=== PATIENT | male | born 1985 | race Caucasian/White ===

== ENCOUNTER 2021-03-26 10:01 | Outpatient (REF) | payer OTHER, SELFPAY ==
--- NOTE | ~2021-03-26 | XR_ITS ---
EXAMINATION: XR HAND, RIGHT CLINICAL INFORMATION: Right hand pain. COMPARISON: Right hand radiographs dated 10/02/2006. TECHNIQUE: PA, lateral, and oblique views of the right hand. FINDINGS: Healed 5th metacarpal fracture. No acute fracture. No joint space narrowing or marginal osteophytes. No osseous erosion. No abnormal soft tissue calcification. XR/XR hand RT min 3V IMPRESSION: Healed 5th metacarpal fracture. No acute osseous abnormality.
== END 2021-03-26 10:02 | disposition home or self-care (01) ==
LOC: HO.HOSX 10:01
PROVIDERS: Visit Provider Orthopaedic Surgery
DX: S60.221A Contusion of right hand, initial encounter (principal); M25.641 Stiffness of right hand, not elsewhere classified; W01.0XXA Fall on same level from slipping, tripping and stumbling without subsequent striking against object, initial encounter; Y93.9 Activity, unspecified; Y92.9 Unspecified place or not applicable; Y99.0 Civilian activity done for income or pay
CPT/HCPCS: 73130; 99202

== ENCOUNTER 2021-04-02 08:32 | Outpatient (REF) | payer OTHER, SELFPAY ==
--- NOTE | ~2021-04-02 | XR_ITS ---
EXAMINATION: XR HAND, RIGHT CLINICAL INFORMATION: Pain. COMPARISON: Radiographs dated 03/26/2021 and 10/02/2006. TECHNIQUE: PA, lateral, and oblique views of the right fifth finger. FINDINGS: The bones and soft tissues are normal. No acute fracture or dislocation is seen. There is an old, healed right fifth metacarpal boxer's fracture. Alignment is anatomic. Joint spaces are maintained. No erosions or soft tissue calcifications. XR/XR hand RT min 3V IMPRESSION: Unremarkable radiographs of the right fifth finger, without acute fracture, dislocation or unusual degenerative change. There is an old, healed right fifth metacarpal boxer's fracture.
== END 2021-04-02 08:33 | disposition home or self-care (01) ==
LOC: HO.HOSX 08:32
PROVIDERS: Visit Provider Orthopaedic Surgery
DX: M25.641 Stiffness of right hand, not elsewhere classified (principal); S60.221D Contusion of right hand, subsequent encounter; S54.01XD Injury of ulnar nerve at forearm level, right arm, subsequent encounter
CPT/HCPCS: 73130; 99212

== ENCOUNTER → 2022-03-06 10:21 | Outpatient (BNVA) | payer OTHER, SELFPAY | PROVIDERS: Visit Provider Internal Medicine | DX: Z13.89 Encounter for screening for other disorder (principal) ==

== ENCOUNTER 2022-03-06 10:48 | Emergency (ER) | payer OTHER, SELFPAY ==
[2022-03-06] VITALS (7 sets, daily range): BP systolic 110–128; BP diastolic 53–57; PULSE 67–69; RESP 19–20; TEMP 36.7–37.1; O2SAT 99–100; BMI 28.8
--- NOTE | ~2022-03-06 | XR_ITS ---
EXAMINATION: XR calcaneus RT min 2V, XR calcaneus LT min 2V, XR foot LT min 3V, XR tibia fibula RT 2V, XR foot RT min 3V, XR tibia fibula LT 2V CLINICAL INFORMATION: Injury. COMPARISON: None. TECHNIQUE: Axial view of the left calcaneus. AP and lateral views of the tibia and fibula. AP, lateral, and oblique views of the left foot. Axial view of the right calcaneus. AP and lateral views of the right tibia and fibula. AP, lateral, and oblique views of the right foot. FINDINGS:. LEFT TIBIA AND FIBULA, CALCANEUS, AND FOOT: There is a mildly comminuted fracture of the body of the calcaneus that appears to extend to the subtalar joint. Tiny posterior enthesophyte at the distal Achilles tendon attachment. Tiny plantar calcaneal enthesophyte. The left tibia and fibula are intact. Normal tarsal-metatarsal alignment. The midfoot is intact. No fracture or dislocation of the tarsometatarsal metatarsals RIGHT TIBIA AND FIBULA, CALCANEUS, AND FOOT: Right tibia and fibula are intact. Right calcaneus is intact. No fracture or dislocation of the right foot. Normal mineralization and alignment. XR/XR tibia fibula RT 2V IMPRESSION: Comminuted fracture of the body of the left calcaneus with likely extension to the subtalar joint. No fracture in the left tibia and fibula. No fracture in the remainder of the left foot. No fracture of the right tibia, fibula, calcaneus, or foot.
--- NOTE | ~2022-03-06 | XR_ITS ---
EXAMINATION: XR calcaneus RT min 2V, XR calcaneus LT min 2V, XR foot LT min 3V, XR tibia fibula RT 2V, XR foot RT min 3V, XR tibia fibula LT 2V CLINICAL INFORMATION: Injury. COMPARISON: None. TECHNIQUE: Axial view of the left calcaneus. AP and lateral views of the tibia and fibula. AP, lateral, and oblique views of the left foot. Axial view of the right calcaneus. AP and lateral views of the right tibia and fibula. AP, lateral, and oblique views of the right foot. FINDINGS:. LEFT TIBIA AND FIBULA, CALCANEUS, AND FOOT: There is a mildly comminuted fracture of the body of the calcaneus that appears to extend to the subtalar joint. Tiny posterior enthesophyte at the distal Achilles tendon attachment. Tiny plantar calcaneal enthesophyte. The left tibia and fibula are intact. Normal tarsal-metatarsal alignment. The midfoot is intact. No fracture or dislocation of the tarsometatarsal metatarsals RIGHT TIBIA AND FIBULA, CALCANEUS, AND FOOT: Right tibia and fibula are intact. Right calcaneus is intact. No fracture or dislocation of the right foot. Normal mineralization and alignment. XR/XR calcaneus RT min 2V IMPRESSION: Comminuted fracture of the body of the left calcaneus with likely extension to the subtalar joint. No fracture in the left tibia and fibula. No fracture in the remainder of the left foot. No fracture of the right tibia, fibula, calcaneus, or foot.
--- NOTE | ~2022-03-06 | XR_ITS ---
EXAMINATION: XR calcaneus RT min 2V, XR calcaneus LT min 2V, XR foot LT min 3V, XR tibia fibula RT 2V, XR foot RT min 3V, XR tibia fibula LT 2V CLINICAL INFORMATION: Injury. COMPARISON: None. TECHNIQUE: Axial view of the left calcaneus. AP and lateral views of the tibia and fibula. AP, lateral, and oblique views of the left foot. Axial view of the right calcaneus. AP and lateral views of the right tibia and fibula. AP, lateral, and oblique views of the right foot. FINDINGS:. LEFT TIBIA AND FIBULA, CALCANEUS, AND FOOT: There is a mildly comminuted fracture of the body of the calcaneus that appears to extend to the subtalar joint. Tiny posterior enthesophyte at the distal Achilles tendon attachment. Tiny plantar calcaneal enthesophyte. The left tibia and fibula are intact. Normal tarsal-metatarsal alignment. The midfoot is intact. No fracture or dislocation of the tarsometatarsal metatarsals RIGHT TIBIA AND FIBULA, CALCANEUS, AND FOOT: Right tibia and fibula are intact. Right calcaneus is intact. No fracture or dislocation of the right foot. Normal mineralization and alignment. XR/XR foot LT min 3V IMPRESSION: Comminuted fracture of the body of the left calcaneus with likely extension to the subtalar joint. No fracture in the left tibia and fibula. No fracture in the remainder of the left foot. No fracture of the right tibia, fibula, calcaneus, or foot.
--- NOTE | ~2022-03-06 | CT_ITS ---
EXAMINATION: CT EXAM OF LEFT FOOT. CLINICAL INFORMATION: Calcaneal fracture. COMPARISON: Left calcaneus 03/06/2022 TECHNIQUE: Axial images obtained through the left foot. Coronal and sagittal reformatted images are performed at CT scanner FINDINGS: Comminuted intra-articular fracture of the left calcaneus. There is a fragmented fracture through the posterior facet of the calcaneus. Moderate displacement of fracture fragments. Fracture extends to the inferior surface of the calcaneus. The fracture line extends anterior to the calcaneal cuboid articulation. There is a fracture through the base of the sustentaculum gian with normal articulation between the sustentaculum gian and the talus . CT/CT foot LT wo con IMPRESSION: Comminuted displaced intra-articular fracture of calcaneus.
--- NOTE | ~2022-03-06 | XR_ITS ---
EXAMINATION: XR calcaneus RT min 2V, XR calcaneus LT min 2V, XR foot LT min 3V, XR tibia fibula RT 2V, XR foot RT min 3V, XR tibia fibula LT 2V CLINICAL INFORMATION: Injury. COMPARISON: None. TECHNIQUE: Axial view of the left calcaneus. AP and lateral views of the tibia and fibula. AP, lateral, and oblique views of the left foot. Axial view of the right calcaneus. AP and lateral views of the right tibia and fibula. AP, lateral, and oblique views of the right foot. FINDINGS:. LEFT TIBIA AND FIBULA, CALCANEUS, AND FOOT: There is a mildly comminuted fracture of the body of the calcaneus that appears to extend to the subtalar joint. Tiny posterior enthesophyte at the distal Achilles tendon attachment. Tiny plantar calcaneal enthesophyte. The left tibia and fibula are intact. Normal tarsal-metatarsal alignment. The midfoot is intact. No fracture or dislocation of the tarsometatarsal metatarsals RIGHT TIBIA AND FIBULA, CALCANEUS, AND FOOT: Right tibia and fibula are intact. Right calcaneus is intact. No fracture or dislocation of the right foot. Normal mineralization and alignment. XR/XR calcaneus LT min 2V IMPRESSION: Comminuted fracture of the body of the left calcaneus with likely extension to the subtalar joint. No fracture in the left tibia and fibula. No fracture in the remainder of the left foot. No fracture of the right tibia, fibula, calcaneus, or foot.
--- NOTE | ~2022-03-06 | XR_ITS ---
EXAMINATION: XR calcaneus RT min 2V, XR calcaneus LT min 2V, XR foot LT min 3V, XR tibia fibula RT 2V, XR foot RT min 3V, XR tibia fibula LT 2V CLINICAL INFORMATION: Injury. COMPARISON: None. TECHNIQUE: Axial view of the left calcaneus. AP and lateral views of the tibia and fibula. AP, lateral, and oblique views of the left foot. Axial view of the right calcaneus. AP and lateral views of the right tibia and fibula. AP, lateral, and oblique views of the right foot. FINDINGS:. LEFT TIBIA AND FIBULA, CALCANEUS, AND FOOT: There is a mildly comminuted fracture of the body of the calcaneus that appears to extend to the subtalar joint. Tiny posterior enthesophyte at the distal Achilles tendon attachment. Tiny plantar calcaneal enthesophyte. The left tibia and fibula are intact. Normal tarsal-metatarsal alignment. The midfoot is intact. No fracture or dislocation of the tarsometatarsal metatarsals RIGHT TIBIA AND FIBULA, CALCANEUS, AND FOOT: Right tibia and fibula are intact. Right calcaneus is intact. No fracture or dislocation of the right foot. Normal mineralization and alignment. XR/XR foot RT min 3V IMPRESSION: Comminuted fracture of the body of the left calcaneus with likely extension to the subtalar joint. No fracture in the left tibia and fibula. No fracture in the remainder of the left foot. No fracture of the right tibia, fibula, calcaneus, or foot.
--- NOTE | ~2022-03-06 | XR_ITS ---
EXAMINATION: XR calcaneus RT min 2V, XR calcaneus LT min 2V, XR foot LT min 3V, XR tibia fibula RT 2V, XR foot RT min 3V, XR tibia fibula LT 2V CLINICAL INFORMATION: Injury. COMPARISON: None. TECHNIQUE: Axial view of the left calcaneus. AP and lateral views of the tibia and fibula. AP, lateral, and oblique views of the left foot. Axial view of the right calcaneus. AP and lateral views of the right tibia and fibula. AP, lateral, and oblique views of the right foot. FINDINGS:. LEFT TIBIA AND FIBULA, CALCANEUS, AND FOOT: There is a mildly comminuted fracture of the body of the calcaneus that appears to extend to the subtalar joint. Tiny posterior enthesophyte at the distal Achilles tendon attachment. Tiny plantar calcaneal enthesophyte. The left tibia and fibula are intact. Normal tarsal-metatarsal alignment. The midfoot is intact. No fracture or dislocation of the tarsometatarsal metatarsals RIGHT TIBIA AND FIBULA, CALCANEUS, AND FOOT: Right tibia and fibula are intact. Right calcaneus is intact. No fracture or dislocation of the right foot. Normal mineralization and alignment. XR/XR tibia fibula LT 2V IMPRESSION: Comminuted fracture of the body of the left calcaneus with likely extension to the subtalar joint. No fracture in the left tibia and fibula. No fracture in the remainder of the left foot. No fracture of the right tibia, fibula, calcaneus, or foot.
[2022-03-06] MEDS: Morphine Sulfate 10 MG/ML CARTRIDGE 8 MG IVPUSH (11:54)
[2022-03-06 12:06] LABS: MANUAL DIFF FLAG NO
[2022-03-06 12:09] LABS: Basophils Absolute Auto 0.1 X10*3/uL (0.0-0.2); Basophils Percent Auto 0.5 % (0-2); Eosinophils Absolute Auto 0.3 X10*3/uL (0.0-0.4); Hematocrit 41.5 % (42.0-52.0); Hemoglobin 13.9 g/dl (14.0-18.0); Imm Gran Abs Auto 0.03 X10*3/uL (0.00-0.03); Imm Gran Pct Auto 0.3 % (0.0-0.4); Lymphocytes Absolute Auto 1.4 X10*3/uL (1.2-4.9); Lymphocytes Percent Auto 13.7 % (20-40); Mean Corpuscular HGB Conc 33.5 g/dl (31.0-36.0); Mean Corpuscular Hemoglobin 29.3 pg (27.0-33.0); Mean Corpuscular Volume 87.4 fL (80.0-98.0); Mean Platelet Volume 9.9 fL (9.4-12.4); Monocytes Absolute Auto 0.6 X10*3/uL (0.1-1.2); Monocytes Percent Auto 5.7 % (2-11); Neutrophils Percent Auto 76.8 % (45-73); Platelet Count 260 X10*3/uL (160-400); Red Blood Count 4.75 X10*6/uL (4.60-5.80); Red Cell Distribution Width 13.2 % (11.0-16.0); White Blood Count 10.4 X10*3/uL (4.8-10.8)
[2022-03-06 12:20] LABS: Anion Gap 11 (12-20); Blood Urea Nitrogen 13 mg/dL (9-16); Calcium 9.2 mg/dL (8.4-10.2); Carbon Dioxide 24 mmol/L (22-29); Chloride 106 mmol/L (96-108); Creatinine Clr Calc Pharmacy 162.6; Estimated Glomerular Filt Rate > 60; Glucose Random 126 mg/dL (60-115); Potassium 4.9 mmol/L (3.3-5.1); Sodium 136 mmol/L (135-145)
[2022-03-06] MEDS: HYDROmorphone HCl 1 MG/ML SYRINGE IVPUSH ×4 (12:22→17:30)
--- NOTE | 2022-03-06 12:22 | ED.FALL ---
HPI - Fall General Chief Complaint: Fall Stated Complaint: fell 10-12 feet, feet in pain Time Seen by Provider: 03/06/22 11:38 History of Present Illness HPI Narrative: Patient complains of severe pain in both feet ankles and left lower leg after a fall of 12 ft, he was at work tripped and fell off a [address] and landed on both feet, he denies pain anywhere else, did not hit his head, has no neck pain or back pain Related Data Home Medications Medication Instructions Recorded Confirmed buprenorphine 2 mg-naloxone 0.5 mg 1 film buccal DAILY 03/26/21 sublingual film (Suboxone) Previous Rx's Medication Instructions Recorded acetaminophen 500 mg tablet 1,000 mg PO QID PRN pain #30 tabs 03/06/22 ibuprofen 600 mg tablet 600 mg PO Q6H PRN pain #20 tabs 03/06/22 oxycodone 5 mg tablet 5 mg PO Q6H PRN pain #20 tabs 03/06/22 Allergies Allergy/AdvReac Type Severity Reaction Status Date / Time No Known Allergies Allergy Verified 03/26/21 10:53 Review of Systems Review of Systems: Positive for bilateral foot ankle and leg pain worse on the left after a fall from 12 ft at work Negatives are no head injury no headache no dizziness no confusion no loss of consciousness no retrograde amnesia no vision changes no numbness no tingling no neck pain no loss of sensation no muscle weakness no chest pain no rib pain no shortness of breath no abdominal pain no nausea or vomiting no back pain no changes to bowel or bladder no numbness no weakness no tingling, no upper extremities pains or complaints Yes all other systems are reviewed and are negative [facility] Past Medical History [facility] Narrative: Patient has remote history of opioid abuse and is a regular working person on Suboxone with no recent narcotic use Source: nursing notes reviewed Social History Social History (Updated 03/26/21 @ 10:54 by NOEMI Gillette) Advance Directives: No Advance Directives Information Provided: No Current occupational status: employed 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 Physical 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 Vital Signs: Vital Signs: Last Vital Signs Temp 98.7 F 03/06/22 12:19 Pulse 67 03/06/22 12:19 Resp 20 03/06/22 14:54 BP 110/53 L 03/06/22 12:19 Pulse Ox 99 03/06/22 12:19 O2 Del Method 03/06/22 12:19 BMI result Body Mass Index 28.8 General appearance is very uncomfortable due to foot pain worse on left side and right Head is normocephalic atraumatic Eyes pupils equal round reactive to light extraocular motions are intact The neck is supple with full range of motion without tenderness The chest is clear to auscultation bilateral with full symmetric equal breath sounds, no chest wall tenderness no rib tenderness The back there is no tenderness in the back there is full range of motion no bony tenderness Extremities the left foot is swollen ecchymotic with worse tenderness around the ankle area of the foot but it is diffusely tender, the skin is intact, sensation is intact distal he can move his toes, neurovascular is intact Left ankle is tender and swollen The knee has full range of motion and there is some tenderness in the distal tib-fib area The right medial ankle is tender, there is also tenderness of the foot but there is no significant ecchymosis or swelling now Mild tenderness at the medial ankle, mild tenderness of the proximal tibia area but no swelling or deformity of the lower leg Skin no lacerations Neuro no focal motor sensory deficits Course Course Course Narrative: X-rays of bilateral foot calcaneus ankle and tib-fib showed fracture of the calcaneus of the left foot, no fracture seen on the right side no other fractures seen on the left Case discussed by text with physician document control assistant doyle who advised splint the patient, nonweightbearing as possible and follow in the office She also requested a CT of the left foot The patient was splinted and discharged and advised to call orthopedist in the morning and return to the ER for pain out of control any worse condition MDM - Fall Lab Data Result diagrams: 03/06/22 11:52 03/06/22 11:52 Labs: Lab Results 03/06/22 03/06/22 Range/Units 11:52 11:52 WBC 10.4 (4.8-10.8) X10*3/uL RBC 4.75 (4.60-5.80) X10*6/uL Hgb 13.9 L (14.0-18.0) g/dl Hct 41.5 L (42.0-52.0) % MCV 87.4 (80.0-98.0) fL MCH 29.3 (27.0-33.0) pg MCHC 33.5 (31.0-36.0) g/dl RDW 13.2 (11.0-16.0) % Plt Count 260 (160-400) X10*3/uL MPV 9.9 (9.4-12.4) fL Immature Gran % (Auto) 0.3 (0.0-0.4) % Neut % (Auto) 76.8 H (45-73) % Lymph % (Auto) 13.7 L (20-40) % [place] % (Auto) 5.7 (2-11) % Eos % (Auto) 3.0 (0-4) % Baso % (Auto) 0.5 (0-2) % Lymph # (Auto) 1.4 (1.2-4.9) X10*3/uL [place] # (Auto) 0.6 (0.1-1.2) X10*3/uL Eos # (Auto) 0.3 (0.0-0.4) X10*3/uL Baso # (Auto) 0.1 (0.0-0.2) X10*3/uL Abs Immat Gran (auto) 0.03 (0.00-0.03) X10*3/uL Absolute Neuts (auto) 8.0 (2.0-8.3) x10*3/uL Absolute Nucleated RBC 0.000 (0.0-0.012) X10*3/uL Nucleated RBC % (auto) 0.0 (0.0-0.2) /100WBC Sodium 136 (135-145) mmol/L Potassium 4.9 (3.3-5.1) mmol/L Chloride 106 (96-108) mmol/L Carbon Dioxide 24 (22-29) mmol/L Anion Gap 11 L (12-20) BUN 13 (9-16) mg/dL Creatinine 0.89 (0.5-1.4) mg/dL Estim Creat Clear Calc 162.6 Estimated GFR > 60 Random Glucose 126 H (60-115) mg/dL Calcium 9.2 (8.4-10.2) mg/dL Discharge Plan Discharge Clinical Impression: Calcaneus fracture, left, Right ankle sprain Patient Disposition: Home, Self-Care Additional Instructions: Follow with orthopedist and [facility] The case was discussed with orthopedic physician document control assistant Doyle who advised that you should call the office to follow-up Wednesday Return to the ER any time for severe uncontrolled pain, loss of sensation or movement in the toes, bluish color in the toes, any worse condition or any concerns Make sure to call the prescribing doctor for your Suboxone and tele about the broken heal and that the ER wrote for oxycodone You want make sure that there are no problems with getting your regular Suboxone script and the prescriber needs to know if your getting any other narcotic medications Prescriptions: New oxycodone 5 mg tablet 5 mg PO Q6H PRN (Reason: pain) Qty: 20 0RF Rx Instructions: Partial Fill upon patient request. acetaminophen 500 mg tablet 1,000 mg PO QID PRN (Reason: pain) Qty: 30 0RF ibuprofen 600 mg tablet 600 mg PO Q6H PRN (Reason: pain) Qty: 20 0RF Referrals: [facility] [Provider Group] (Left calcaneus fracture at work) José Miguel North PA-C [Physician Auto Dealer] - (Left calcaneus fracture) Zhou Mallory MD [Physician] - (Left calcaneus fracture) Stand Alone Forms: Work/School Release
--- NOTE | 2022-03-06 13:51 | PC.NURSE ---
Both boots removed from patient's feet. Reports 10/10 pain on left ankle/lower extremity, and 8/10 pain on right ankle/lower extremity. In ED bed/stretcher at this time.
--- NOTE | 2022-03-06 14:29 | PC.NURSE ---
Late entry: This RN assisted at arrival. Pt was unable to transfer to stretcher d/t pain. Provider approached and meds administered p/t transfer to stretcher. pt is on suboxone and took his am dose.
--- NOTE | 2022-03-06 17:30 | PC.NURSE ---
patient away in radiology at this time. medicated for pain with another dose of Dilaudid 1mg.
[2022-03-06] MEDS: HYDROmorphone HCl 0.5 MG/0.5 ML SYRINGE IVPUSH (19:45)
== END 2022-03-06 20:04 | disposition home or self-care (01) ==
PROVIDERS: Physician Assistant Medical; Emergency Provider Emergency Medicine Emergency Medical Services
DX: S92.062A Displaced intraarticular fracture of left calcaneus, initial encounter for closed fracture (principal); S93.401A Sprain of unspecified ligament of right ankle, initial encounter; W17.89XA Other fall from one level to another, initial encounter; F11.20 Opioid dependence, uncomplicated; Y93.H3 Activity, building and construction; Y92.69 Other specified industrial and construction area as the place of occurrence of the external cause; Y99.0 Civilian activity done for income or pay
CPT/HCPCS: 29515; 36415; 73590; 73630; 73650; 73700; 80048; 85025; 96374; 96375; 96376; 99283; 99284; J1170; J2270

== ENCOUNTER → 2022-03-11 08:20 | Outpatient (BNVA) | payer OTHER, SELFPAY | PROVIDERS: Visit Provider Physician Assistant | DX: S92.002A Unspecified fracture of left calcaneus, initial encounter for closed fracture (principal); S93.401A Sprain of unspecified ligament of right ankle, initial encounter | CPT/HCPCS: 99202 ==

== ENCOUNTER → 2022-03-16 13:08 | Outpatient (BNVA) | payer OTHER, SELFPAY | PROVIDERS: Visit Provider Physician Assistant | DX: S93.401A Sprain of unspecified ligament of right ankle, initial encounter (principal); S92.002A Unspecified fracture of left calcaneus, initial encounter for closed fracture | CPT/HCPCS: 99212 ==

== ENCOUNTER → 2022-03-23 13:05 | Outpatient (BNVA) | payer OTHER, SELFPAY | PROVIDERS: Visit Provider Physician Assistant | DX: S92.002A Unspecified fracture of left calcaneus, initial encounter for closed fracture (principal); S93.401A Sprain of unspecified ligament of right ankle, initial encounter; W17.89XA Other fall from one level to another, initial encounter; Y93.89 Activity, other specified; Y92.69 Other specified industrial and construction area as the place of occurrence of the external cause; Y99.0 Civilian activity done for income or pay | CPT/HCPCS: 99212 ==

== ENCOUNTER 2022-03-27 10:41 | Inpatient (IN) | payer OTHER, SELFPAY ==
--- NOTE | 2022-03-24 08:43 | HO.ANESPROP2 ---
Documented by User: Halie Andrew NP 03/24/22 08:45 HPI - Anesthesia Eval Consult details Narrative: 36yo M for Left Calcaneous Fracture ORIF Suboxone daily PMFSH Active Problems Active Problems: All Active Problems (Updated 03/11/22 @ 09:00 by Delisa Burnett) Right ankle sprain (Acute) Calcaneus fracture, left (Acute) Injury of right ulnar nerve (Acute) Stiffness of right hand joint (Acute) Contusion of right hand (Acute) Past Medical History Medical History Smoker Surgical History Surgical History History of appendectomy Social History Social History Patient Tobacco Use Status: Current everyday Tobacco user Tobacco use type: Cigarette Cigarettes Per Day: 10 Use of substances other than those prescribed or required for medical reasons: No Substance Use Type Other:: 8 yr ago Are you DNR?: No Advance Directives: No Advance Directives Information Provided: No Current occupational status: employed 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, 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 Allergies Allergy/AdvReac Type Severity Reaction Status Date / Time No Known Allergies Allergy Verified 03/27/22 10:45 Home Medications Medication Instructions Recorded Confirmed Last Taken Type buprenorphine 2 mg-naloxone 0.5 mg 1 film buccal DAILY 03/26/21 03/27/22 03/26/22 09:00 History sublingual film (Suboxone) Exam Exam Date and Time: March 24, 2022 0843 Pertinent Lab Results Pertinent Lab Results: Laboratory Tests 03/06/22 03/06/22 11:52 11:52 WBC 10.4 Hgb 13.9 L Hct 41.5 L Plt Count 260 Sodium 136 Potassium 4.9 Chloride 106 Carbon Dioxide 24 BUN 13 Creatinine 0.89 Assessment and Plan Assessment Anesthesia Assessment: Chart Reviewed Documented by User: Osiel Rivas MD 03/27/22 12:56 PMFSH Past Medical History Medical History Smoker Family History Family history of problems with anesthesia: No Surgical History Surgical History History of appendectomy History of Problems with Anesthesia: No Social History Social History Patient Tobacco Use Status: Current everyday Tobacco user Tobacco use type: Cigarette Cigarettes Per Day: 10 Use of substances other than those prescribed or required for medical reasons: No Substance Use Type Other:: 8 yr ago Are you DNR?: No Advance Directives: No Advance Directives Information Provided: No Current occupational status: employed 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, 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 Allergies Allergy/AdvReac Type Severity Reaction Status Date / Time No Known Allergies Allergy Verified 03/27/22 10:45 Home Medications Medication Instructions Recorded Confirmed Last Taken Type buprenorphine 2 mg-naloxone 0.5 mg 1 film buccal DAILY 03/26/21 03/27/22 03/26/22 09:00 History sublingual film (Suboxone) Exam Airway Mallampati Class: I TM Dist: >3cm Neck ROM: Full Heart: ok Lungs: ok Assessment and Plan Assessment Anesthesia Assessment: Anesthesia Plan Discussed and Chart Reviewed Final Anesthetic Review Family History of Problems with Anesthesia: No History of Problems with Anesthesia: No NPO: Yes ASA Class: II Final Preanesthetic Review: No Changes in Pt Med Stat, Meds/Allgs Chart Reviewed, Consent Obtained/Reviewed and Anes Risks/Benef Reviewed Patient Risk: Low Procedure Risk: Low Anesthetic Plan Anesthetic Plan: GA and Agree w/ Assess. and Plan Disposition: Standard PACU
[2022-03-27] VITALS (15 sets, daily range): BP systolic 109–160; BP diastolic 55–75; PULSE 73–99; RESP 15–18; TEMP 36.4–37.9; O2SAT 97–99; BMI 29.5
--- NOTE | ~2022-03-27 | FL_ITS ---
EXAMINATION: XR FLUOROSCOPY WITH IMAGES CLINICAL INFORMATION: Left calcaneous ORIF COMPARISON: Calcaneus x-ray on 03/04/2022 TECHNIQUE: Fluoroscopy performed by Dr. Zhou Mallory. Fluoroscopy time: 0.1. Cumulative Dose: 5.34 mGy. DAP: 0.0850 mGy-cm2. Images: 9 . FINDINGS: Multiple images of the calcaneus during fixation procedure. FL/FL guidance in OR IMPRESSION: Fluoroscopy provided for the orthopedics department. Please see the operative report for further information.
[2022-03-27] MEDS: Lactated Ringers 1,000 ML 100 ML IVCONT ×2 (11:28→18:42)
--- NOTE | 2022-03-27 11:48 | MHC.SHP ---
Pre-Procedural Eval Section A Date of Service: 03/27/22 The patient is an INPATIENT: No Changes since office visit: Yes Patient answered all questions; No Cold of Flu in the past 2 weeks, No New Medical Problems and No Changes in Medication The History & Physical has been completed within 30 days and I have reviewed it.: Yes Section B Chief Complaint: s/p left calcaneus fracture Allergies: Allergies Allergy/AdvReac Type Severity Reaction Status Date / Time No Known Allergies Allergy Verified 03/27/22 10:45 Plan I have reviewed the history and physical and performed a pertinent physical examination on my patient. No changes have occurred unless specified.
--- NOTE | 2022-03-27 12:00 | PC.NURSE ---
COVID test ran twice per Serology and both resulted invalid. pt reswabbed and sent to lab. per Dr. Mallory and Dr. Rivas no results needed prior to procedure start. Mekhi Merrill, care director notified.
[2022-03-27 13:08] LABS: COVID-19 Test Negative (Negative)
--- NOTE | 2022-03-27 16:19 | PM.OP ---
Brief Operative Note Date of Service: 03/27/22 Pre-op diagnosis: left calcaneus fracture Post-op diagnosis: same Procedure: ORIF left calcaneus Implants: [place] Surgeon: Zhou Mallory MD Anesthesia: GETA and local Was an Small Business Sales Representative used for this Procedure?: Yes Small Business Sales Representative: José Miguel North Estimated blood loss (mL): 250 Tourniquet time (min): 120 IV fluids (mL): 2,000 Pathology: none sent Condition: stable Disposition: PACU
[2022-03-27] MEDS: Ketorolac Tromethamine 30 MG/ML VIAL IVPUSH (17:10)
[2022-03-27] MEDS: Gabapentin 600 MG TABLET PO (17:14)
[2022-03-27] MEDS: oxyCODONE HCl Immed Release 15 MG TABLET PO ×2 (18:41→23:46)
[2022-03-27] MEDS: Celecoxib 200 MG CAPSULE PO (20:53)
[2022-03-27] MEDS: oxyCODONE HCl ER 10 MG TAB.ER.12H PO (20:53)
[2022-03-27] MEDS: Docusate Sodium 100 MG CAPSULE PO (20:53)
[2022-03-27] MEDS: HYDROmorphone HCl 0.5 MG/0.5 ML SYRINGE IVPUSH (20:56)
[2022-03-28] VITALS (7 sets, daily range): BP systolic 115–128; BP diastolic 55–62; PULSE 81–100; RESP 17–20; TEMP 36.3–37.7; O2SAT 95–98
[2022-03-28] MEDS: HYDROmorphone HCl 0.5 MG/0.5 ML SYRINGE IVPUSH (03:46)
[2022-03-28] MEDS: Lactated Ringers 1,000 ML 100 ML IVCONT ×2 (04:14→15:40)
[2022-03-28] MEDS: oxyCODONE HCl Immed Release 15 MG TABLET PO ×4 (04:37→21:07)
[2022-03-28 06:10] LABS: Hematocrit 32.9 % (42.0-52.0); Hemoglobin 11.1 g/dl (14.0-18.0)
--- NOTE | 2022-03-28 07:17 | PC.NURSE ---
left foot up on pillows toes warm to touch ice applied to ankle + cms to toes .reposition for comfort. med for pain with dilaudid iv and oxycodone po will monitor.
[2022-03-28] MEDS: Buprenorphine/Naloxone 2/0.5mg FILM 1 FILM SUBLINGUAL (07:34)
[2022-03-28] MEDS: Docusate Sodium 100 MG CAPSULE PO ×2 (07:34→20:04)
[2022-03-28] MEDS: Celecoxib 200 MG CAPSULE PO ×2 (07:34→20:04)
[2022-03-28] MEDS: Acetaminophen 325 MG TABLET 650 MG PO (07:34)
[2022-03-28] MEDS: oxyCODONE HCl ER 10 MG TAB.ER.12H PO ×2 (07:34→20:04)
--- NOTE | 2022-03-28 07:37 | PM.PNORT ---
Subjective Subjective Date of Service: 03/28/22 Interval history: POD1 s/p ORIF left calcaneus no overnight events resting in bed with pain denies cp, sob,palpitations Physical Exam Vital Signs: Vital Signs: Last Vital Signs Temp 99.8 F 03/28/22 07:20 Pulse 94 03/28/22 07:20 Resp 20 03/28/22 07:20 BP 128/57 L 03/28/22 07:20 Pulse Ox 98 03/28/22 07:20 O2 Del Method 03/28/22 07:20 BMI result Body Mass Index 29.5 Const: General: cooperative, healthy appearing and no acute distress Resp: Effort & Inspection: normal respiratory effort and able to speak in complete sentences Cardio: Rate: regular rate Peripheral pulses: Peripheral pulses 2+ throughout GI: Palpation (GI): Soft to palpation Skin: General skin exam: no rashes or lesions noted Extrem: Other: Left leg splint intact,prevena intact and functioning. Sensation to toes intact Procedures Date of Service Date of Service: 03/28/22 Progress Note: A&P Assessment and plan (1) Calcaneus fracture, left: Status: Acute Assessment and Plan: Pain control-meds adjusted PT-NWB LLE, elevate above heart level Dispo-pending pain control and PT eval Time Spent With Patient Time: Total time spent is greater than 50% in coordination of care (as documented) at patient's floor/unit and/or counseling patient: Quality Stroke Does the patient have a stroke diagnosis?: No VTE Prior VTE?: No VTE Risk Level:: Surgical - very high VTE Device Contraindication: N/A - Device Ordered VTE Drug Contraindication: N/A - Med Ordered
[2022-03-28] MEDS: LORazepam 0.5 MG TABLET PO (07:46)
[2022-03-28] MEDS: HYDROmorphone HCl 0.5 MG/0.5 ML SYRINGE 1 MG IVPUSH ×6 (07:47→22:55)
--- NOTE | 2022-03-28 08:28 | MHC.CM.PN ---
CM met with Patient at bedside. 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 Patient only has Workman's Comp, has no PCP and is not Covid vax'd. Will need PT evl to assist with best dc plan;[facility] has initiated and will follow for dc planning. Patient's Subpxone is mailed directly to his home and RN/[facility] @ [facility] in [place] @ [phone] assists Patient in getting his Suboxone w/o insurance.
[2022-03-28] MEDS: Gabapentin 600 MG TABLET PO (20:04)
[2022-03-28] MEDS: 0.9 % Sodium Chloride Flush 3 ML SYRINGE IVFLUSH (20:05)
[2022-03-28] MEDS: Ketorolac Tromethamine 30 MG/ML VIAL IVPUSH (21:08)
[2022-03-28] MEDS: diphenhydrAMINE HCL 50 MG/ML VIAL 25 MG IVPUSH (22:54)
[2022-03-29] VITALS: BP 116/57; PULSE 80; RESP 17; TEMP 36.2; O2SAT 96
[2022-03-29] MEDS: Lactated Ringers 1,000 ML 100 ML IVCONT ×2 (00:55→10:57)
[2022-03-29 03:58] VITALS: BP 120/60; PULSE 79; RESP 16; TEMP 36.3; O2SAT 97
[2022-03-29 07:24] VITALS: BP 127/59; PULSE 78; RESP 18; O2SAT 97
--- NOTE | 2022-03-29 07:45 | HO.PM.IMCN ---
History of Present Illness Data of Consult Service Date: 03/28/22 Primary Care Provider: None Physician HPI 36-year-old male with no significant past medical history who was admitted to the hospital for elective ORIF of left calcaneous . We are consulted for opioid dependence/Suboxone use. Patient is lying in bed comfortably, he reports significant pain in his leg but otherwise denies any shortness of breath, no trouble breathing, no lethargy, no abdominal pain nausea or vomiting, no diarrhea constipation, no urinary symptoms and no lower extremity edema. Patient reports that he has not slept as a result of the pain would like something for sleep. He otherwise has no fever or chills. Moving his bowels, and has no difficulty with urine. Vitals reviewed, no significant abnormality with respiratory rate of 18, satting 97% on room air Review of Systems Review of Systems: Yes all other systems are reviewed and are negative [facility] Medical History Smoker Family History (Updated 03/29/22 @ 07:49 by Cyndi York MD) Other No family history of coronary artery disease Surgical History (Updated 03/29/22 @ 07:49 by Cyndi York MD) History of appendectomy History of open reduction and internal fixation (ORIF) procedure Social History Patient Tobacco Use Status: Current everyday Tobacco user Tobacco use type: Cigarette Cigarettes Per Day: 10 Use of substances other than those prescribed or required for medical reasons: No Substance Use Type Other:: 8 yr ago Currently Displaying Signs/Symptoms of Drug Intoxication Withdrawal: No Are you DNR?: No Advance Directives: No Advance Directives Information Provided: No service: No Current occupational status: employed 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, 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 Allergies Allergy/AdvReac Type Severity Reaction Status Date / Time No Known Allergies Allergy Verified 03/27/22 10:45 Active Medications: Current Medications Buprenorphine/Naloxone (Buprenorphine/Naloxone 2/0.5mg Film) 1 film SUBLINGUAL DAILY [facility] Last Admin: 03/28/22 07:34 Dose: 1 film Celecoxib (Celecoxib 200 Mg Capsule) 200 mg PO BID [facility] Last Admin: 03/28/22 20:04 Dose: 200 mg Docusate Sodium (Docusate Sodium 100 Mg Capsule) 100 mg PO BID [facility] Last Admin: 03/28/22 20:04 Dose: 100 mg Gabapentin (Gabapentin 600 Mg Tablet) 600 mg PO BEDTIME [facility] Last Admin: 03/28/22 20:04 Dose: 600 mg Hydromorphone HCl (Hydromorphone Hcl 0.5 Mg/0.5 Ml Syringe) 1 mg IVPUSH Q2H PRN; Protocol PRN Reason: Pain, Severe (Pain Scale 7-10) Last Admin: 03/28/22 22:55 Dose: 1 mg Lactated Ringer's (Lr) 1,000 mls @ 100 mls/hr IVCONT .Q10H [facility] Last Admin: 03/29/22 00:55 Dose: 100 mls/hr Acetaminophen (Ofirmev) 1,000 mg in 100 mls @ 400 mls/hr IV Q6H [facility] Last Infusion: 03/29/22 05:48 Dose: Infused Ketorolac Tromethamine (Ketorolac Tromethamine 30 Mg/Ml Vial) 30 mg IVPUSH Q6H PRN PRN Reason: Pain, Mild (Pain Scale 1-3) Last Admin: 03/28/22 21:08 Dose: 30 mg Ondansetron HCl (Ondansetron Hcl 4 Mg/2 Ml Vial) 4 mg IVPUSH Q8H PRN PRN Reason: Nausea and Vomiting Oxycodone HCl (Oxycodone Hcl Immed Release 15 Mg Tablet) 15 mg PO Q4H PRN PRN Reason: Pain, Moderate (Pain Scale 4-6 Last Admin: 03/28/22 21:07 Dose: 15 mg Oxycodone HCl (Oxycodone Hcl Er 10 Mg Tab.Er.12h) 10 mg PO BID [facility] Last Admin: 03/28/22 20:04 Dose: 10 mg Sodium Chloride (0.9 % Sodium Chloride Flush 3 Ml Syringe) 3 ml IVFLUSH QSHIFT [facility] Last Admin: 03/28/22 20:05 Dose: 3 ml Home Medications Medication Instructions Recorded Confirmed Last Taken Type buprenorphine 2 mg-naloxone 0.5 mg 1 film buccal DAILY 03/26/21 03/27/22 03/26/22 09:00 History sublingual film (Suboxone) Physical Exam Vital Signs and Narrative: Vital Signs: Last Vital Signs Temp 97.3 F 03/29/22 03:58 Pulse 78 03/29/22 07:24 Resp 18 03/29/22 07:24 BP 127/59 L 03/29/22 07:24 Pulse Ox 97 03/29/22 07:24 O2 Del Method 03/29/22 07:24 BMI result Body Mass Index 29.5 Const: General: cooperative and no acute distress Orientation/consciousness: patient oriented x3 Eyes: General: appearance normal, both eyes and all related structures Resp: Effort & Inspection: normal respiratory effort Auscultation: clear to auscultation bilaterally Cardio: Rate: regular rate Rhythm: regular rhythm GI: Palpation (GI): Soft to palpation Auscultation: normal bowel sounds Skin: General skin exam: no rashes or lesions noted Neuro: General: patient oriented x3 Cognition (Neuro): normal cognition Extrem: Other: left leg in wrapping, raised General: Yes normal to inspection and Yes no pedal edema Results Labs CBC and Chem 7: 03/28/22 05:13 Assessment and Plan (1) Right ankle sprain: Status: Acute (2) Calcaneus fracture, left: Status: Acute (3) At risk for inadequate pain control: Status: Acute Plan 56-year-old male with history of opioid use on Suboxone currently, reports that he has been clean for 8 years admitted for calcaneus fracture repair status post ORIF , with a consulted for opioid dependence, Suboxone use # at risk for inadequate pain control - given his hx of opioid use and suboxone - at this time pt is stable, he has pain but tolerable. he has no evidence of resp depression or difficulty breathing - I do believe that this gentleman has a high tolerance for pain. - i recommend continuing his suboxone - monitoring mentation and resp status w vitals q4h - PRN Narcan should also be available for nursing staff - if any further difficulty managing pain, please consider consult Ms Kaylie Eddy from addiction medicine Thank you for this consult. we will continue to monitor this pt along with you
[2022-03-29] MEDS: Ketorolac Tromethamine 30 MG/ML VIAL IVPUSH (07:47)
[2022-03-29] MEDS: HYDROmorphone HCl 0.5 MG/0.5 ML SYRINGE 1 MG IVPUSH (07:47)
[2022-03-29] MEDS: oxyCODONE HCl ER 10 MG TAB.ER.12H PO (07:47)
[2022-03-29] MEDS: Celecoxib 200 MG CAPSULE PO (07:48)
[2022-03-29] MEDS: Buprenorphine/Naloxone 2/0.5mg FILM 1 FILM SUBLINGUAL (07:48)
[2022-03-29] MEDS: Docusate Sodium 100 MG CAPSULE PO (07:48)
[2022-03-29] MEDS: 0.9 % Sodium Chloride Flush 3 ML SYRINGE IVFLUSH (07:49)
[2022-03-29 11:43] VITALS: BP 118/56; PULSE 76; RESP 18; TEMP 36.4; O2SAT 97
--- NOTE | 2022-03-29 12:44 | PM.PNORT ---
Subjective Subjective Date of Service: 03/29/22 Interval history: POD1 s/p ORIF left calcaneus no overnight events resting in bed - much more comfortable today denies cp, sob,palpitations Physical Exam Vital Signs: Vital Signs: Last Vital Signs Temp 97.6 F 03/29/22 11:43 Pulse 76 03/29/22 11:43 Resp 18 03/29/22 11:43 BP 118/56 L 03/29/22 11:43 Pulse Ox 97 03/29/22 11:43 O2 Del Method 03/29/22 11:43 BMI result Body Mass Index 29.5 Const: General: cooperative, healthy appearing and no acute distress Resp: Effort & Inspection: normal respiratory effort and able to speak in complete sentences Cardio: Rate: regular rate Peripheral pulses: Peripheral pulses 2+ throughout GI: Palpation (GI): Soft to palpation Skin: General skin exam: no rashes or lesions noted Extrem: Other: Left leg splint intact,prevena intact and functioning. Sensation to toes intact Procedures Date of Service Date of Service: 03/29/22 Progress Note: A&P Assessment and plan (1) Calcaneus fracture, left: Status: Acute Assessment and Plan: Pain control-continue current tx plan- try to hold iv pain meds PT-NWB LLE, elevate above heart level Dispo-pending pain control and PT eval Time Spent With Patient Time: Total time spent is greater than 50% in coordination of care (as documented) at patient's floor/unit and/or counseling patient: Quality Stroke Does the patient have a stroke diagnosis?: No VTE Prior VTE?: No VTE Risk Level:: Surgical - very high VTE Device Contraindication: N/A - Device Ordered VTE Drug Contraindication: N/A - Med Ordered
--- NOTE | 2022-03-29 13:55 | P.PNIM_ITS ---
Subjective Subjective Date of Service: 03/29/22 Interval History: calcaneus pain seems improving Review of Systems Denies any new complaint of chest pain or shortness of breath or abdominal pain or fever or chills or nausea or vomiting Denies any cough Denies any weakness or numbness. Physical Exam Vital Signs: Vital Signs: Last Vital Signs Temp 97.6 F 03/29/22 11:43 Pulse 76 03/29/22 11:43 Resp 18 03/29/22 11:43 BP 118/56 L 03/29/22 11:43 Pulse Ox 97 03/29/22 11:43 O2 Del Method 03/29/22 11:43 BMI result Body Mass Index 29.5 Appearance: Alert.? Oriented X3.? not in distress.?. cvs: rrr, [id number] , no murmur res: clear to auscultation ,no rhonchii or wheezing abd: no rebound or guarding ,nt, bs present. ext pulses present , no cyanosis . neuro: axo3 , nonfocal. Objective Data Active Medications Acetaminophen (Acetaminophen 325 Mg Tablet) 650 mg PO Q6H PRN PRN Reason: Pain, Mild (Pain Scale 1-3) Buprenorphine/Naloxone (Buprenorphine/Naloxone 2/0.5mg Film) 1 film SUBLINGUAL DAILY [facility] Last Admin: 03/29/22 07:48 Dose: 1 film Documented By: LUIS Celecoxib (Celecoxib 200 Mg Capsule) 200 mg PO BID [facility] Last Admin: 03/29/22 07:48 Dose: 200 mg Documented By: LUIS Docusate Sodium (Docusate Sodium 100 Mg Capsule) 100 mg PO BID [facility] Last Admin: 03/29/22 07:48 Dose: 100 mg Documented By: LUIS Gabapentin (Gabapentin 600 Mg Tablet) 600 mg PO BEDTIME [facility] Last Admin: 03/28/22 20:04 Dose: 600 mg Documented By: JANN Hydromorphone HCl (Hydromorphone Hcl 0.5 Mg/0.5 Ml Syringe) 1 mg IVPUSH Q2H PRN; Protocol PRN Reason: Pain, Severe (Pain Scale 7-10) Last Admin: 03/29/22 07:47 Dose: 1 mg Documented By: LUIS Lactated Ringer's (Lr) 1,000 mls @ 100 mls/hr IVCONT .Q10H [facility] Last Admin: 03/29/22 10:57 Dose: 100 mls/hr Documented By: LUIS Ketorolac Tromethamine (Ketorolac Tromethamine 30 Mg/Ml Vial) 30 mg IVPUSH Q6H PRN PRN Reason: Pain, Mild (Pain Scale 1-3) Last Admin: 03/29/22 07:47 Dose: 30 mg Documented By: LUIS Ondansetron HCl (Ondansetron Hcl 4 Mg/2 Ml Vial) 4 mg IVPUSH Q8H PRN PRN Reason: Nausea and Vomiting Oxycodone HCl (Oxycodone Hcl Immed Release 15 Mg Tablet) 15 mg PO Q4H PRN PRN Reason: Pain, Moderate (Pain Scale 4-6 Last Admin: 03/28/22 21:07 Dose: 15 mg Documented By: JANN Oxycodone HCl (Oxycodone Hcl Er 10 Mg Tab.Er.12h) 10 mg PO BID [facility] Last Admin: 03/29/22 07:47 Dose: 10 mg Documented By: LUIS Sodium Chloride (0.9 % Sodium Chloride Flush 3 Ml Syringe) 3 ml IVFLUSH QSHIFT [facility] Last Admin: 03/29/22 07:49 Dose: 3 ml Documented By: LUIS Labs CBC & Chem 7: 03/28/22 05:13 Assessment and Plan (1) Calcaneus fracture, left: Status: Acute Plan 56-year-old male with history of opioid use on Suboxone currently, reports that he has been clean for 8 years admitted for calcaneus fracture repair status post ORIF , with a consulted for opioid dependence, Suboxone use # at risk for inadequate pain control - given his hx of opioid use and suboxone-at this time pt is stable, he has pain but tolerable and improving. he has no evidence of resp depression or difficulty breathing, currently on suboxone, oxycontin and oxycodone - monitoring mentation and resp status w vitals q4h - PRN Narcan should also be available for nursing staff consult Ms Kaylie Eddy from addiction medicine and consider pain management consult if needed. will sign out for now ,please call for any questions. Quality Stroke Does the patient have a stroke diagnosis?: No VTE Prior VTE?: No VTE Risk Level:: Surgical - very high VTE Device Contraindication: N/A - Device Ordered VTE Drug Contraindication: N/A - Med Ordered
--- NOTE | 2022-03-29 14:26 | P.PNADD_ITS ---
Subjective Subjective Date of Service: 03/29/22 Reason For Visit: s/p left calcaneus fracture Interim History: Consult requested as patient with recent ortho surgery Currently prescribed buprenorphine/suboxone 2mg QD Patient reports he has been in sustained recovery for 8 years Was having some issues with pain management initially and difficulty sleeping--reports he slept very well last evening for the first time since his surgery. Reports that pain is being managed well. No concerns to report at this time Review of Systems Constitutional: Reports as per HPI and Reports no additional constitutional complaints Mental Status Exam Mental Status Exam Patient Appearance: Well Grooomed and Appropriate Level of Consciousness: Awake and Appropriate Patient Behavior: Appropriate and Cooperative Judgement: Good Diagnostics Vital Signs (24Hr): Vital Signs - 24 hr 03/28/22 17:02 03/28/22 15:53 03/28/22 19:27 Temperature 97.3 F 98.0 F Pulse Rate 81 88 Respiratory Rate 17 17 Blood Pressure 115/55 L 119/59 L Pulse Oximetry 96 96 98 Oxygen Delivery Method Room Air Room Air Room Air 03/29/22 00:00 03/29/22 03:58 03/29/22 07:24 Temperature 97.2 F 97.3 F Pulse Rate 80 79 78 Respiratory Rate 17 16 18 Blood Pressure 116/57 L 120/60 127/59 L Pulse Oximetry 96 97 97 Oxygen Delivery Method Room Air Room Air Room Air 03/29/22 11:43 Temperature 97.6 F Pulse Rate 76 Respiratory Rate 18 Blood Pressure 118/56 L Pulse Oximetry 97 Oxygen Delivery Method Room Air BMI result Body Mass Index 29.5 Labs Results: 03/28/22 05:13 Labs: Laboratory Results - last 48 hr 03/28/22 05:13 Hgb 11.1 L D Hct 32.9 L D Imaging Radiology Impressions: ITS Impressions Guidance Fluoroscopy 03/27/22 15:55 IMPRESSION: Fluoroscopy provided for the orthopedics department. Please see the operative report for further information. Medications Medications Current Medications Acetaminophen (Acetaminophen 325 Mg Tablet) 650 mg PO Q6H PRN PRN Reason: Pain, Mild (Pain Scale 1-3) Buprenorphine/Naloxone (Buprenorphine/Naloxone 2/0.5mg Film) 1 film SUBLINGUAL DAILY [facility] Last Admin: 03/29/22 07:48 Dose: 1 film Celecoxib (Celecoxib 200 Mg Capsule) 200 mg PO BID [facility] Last Admin: 03/29/22 07:48 Dose: 200 mg Docusate Sodium (Docusate Sodium 100 Mg Capsule) 100 mg PO BID [facility] Last Admin: 03/29/22 07:48 Dose: 100 mg Gabapentin (Gabapentin 600 Mg Tablet) 600 mg PO BEDTIME [facility] Last Admin: 03/28/22 20:04 Dose: 600 mg Hydromorphone HCl (Hydromorphone Hcl 0.5 Mg/0.5 Ml Syringe) 1 mg IVPUSH Q2H P RN; Protocol PRN Reason: Pain, Severe (Pain Scale 7-10) Last Admin: 03/29/22 07:47 Dose: 1 mg Lactated Ringer's (Lr) 1,000 mls @ 100 mls/hr IVCONT .Q10H [facility] Last Admin: 03/29/22 10:57 Dose: 100 mls/hr Ketorolac Tromethamine (Ketorolac Tromethamine 30 Mg/Ml Vial) 30 mg IVPUSH Q6H PRN PRN Reason: Pain, Mild (Pain Scale 1-3) Last Admin: 03/29/22 07:47 Dose: 30 mg Ondansetron HCl (Ondansetron Hcl 4 Mg/2 Ml Vial) 4 mg IVPUSH Q8H PRN PRN Reason: Nausea and Vomiting Oxycodone HCl (Oxycodone Hcl Immed Release 15 Mg Tablet) 15 mg PO Q4H PRN PRN Reason: Pain, Moderate (Pain Scale 4-6 Last Admin: 03/28/22 21:07 Dose: 15 mg Oxycodone HCl (Oxycodone Hcl Er 10 Mg Tab.Er.12h) 10 mg PO BID [facility] Last Admin: 03/29/22 07:47 Dose: 10 mg Sodium Chloride (0.9 % Sodium Chloride Flush 3 Ml Syringe) 3 ml IVFLUSH QSHIFT [facility] Last Admin: 03/29/22 07:49 Dose: 3 ml Allergies Allergies Allergy/AdvReac Type Severity Reaction Status Date / Time No Known Allergies Allergy Verified 03/27/22 10:45 Assessment & Plan Assessment & Plan (1) Calcaneus fracture, left: Status: Acute Code(s): S92.002A - Unspecified fracture of left calcaneus, initial encounter for closed fracture (2) At risk for inadequate pain control: Status: Acute Code(s): Z91.89 - Other specified personal risk factors, not elsewhere classified Assessment and Plan: * advised to continue subxone with pain medication * no follow up necessary I spent ____25__ minutes with the patient and/or on the patient floor today, greater than?50% of which was spent counseling/coordinating care.
--- NOTE | 2022-03-29 14:26 | HO.POSTANES ---
Post Anesthesia Evaluation Post Anesthesia Evaluation Vital Signs: Vital Signs Temp Pulse Resp BP Pulse Ox O2 Del Method 03/29/22 11:43 97.6 F 76 18 118/56 L 97 Room Air 03/29/22 07:24 78 18 127/59 L 97 Room Air 03/29/22 03:58 97.3 F 79 16 120/60 97 Room Air Anesthesia: General LMA Mental Status: Awake Pain Control: Satisfactory Nausea/Vomiting: None Hydration: Adequate Anesthesia-Related Issues: No Anes. Related Issues
[2022-03-29] MEDS: oxyCODONE HCl Immed Release 15 MG TABLET PO (15:00)
[2022-03-29] MEDS: Acetaminophen 325 MG TABLET 650 MG PO (15:01)
[2022-03-29 15:44] VITALS: BP 115/56; PULSE 79; RESP 20; TEMP 36.3; O2SAT 97
--- NOTE | 2022-03-29 21:38 | PM.DS ---
DS: Providers Provider Date of Service: 03/29/22 Date of admission: 03/27/22 10:41 Primary care physician: None Physician Consults: 03/28/22 18:08 Consult to Hospitalist Routine Consulting Provider: Hospitalist Reason For Exam: Opiate dependemce / suboxone use 03/29/22 09:29 Addiction Medicine Routine Consulting Provider: Kaylie Eddy Reason for consultation: multiple pain meds and subaxone Has provider been notified: No DS: Diagnosis Discharge Diagnosis (1) Calcaneus fracture, left: Status: Acute DS: Summary Hospital Course Hospital Course: The patient underwent a successful ORIF of the left calcaneus, he was transferred to PACU and then to the floor to recover. During their stay, their vitals were stable, afebrile at 97.4. Labs were unremarkable, H/H 11.1/32.9 . POD 1 he received PT and was out of bed to a chair, ambulating NWB. Prior to discharge, prevena intact and working, splint intact, and he was discharged home. Time Spent with Patient Time attestation: Total time spent providing and/or coordinating discharge services: Discharge coordination time: Less than 30 minutes Quality: Safe Use of Opioids Does Pt have an Active Cancer Diagnosis on the Problem List?: No Quality: Stroke Does the patient have a stroke diagnosis?: No Physical Exam Vital Signs: Vital Signs: Last Vital Signs Temp 97.4 F 03/29/22 15:44 Pulse 79 03/29/22 15:44 Resp 20 03/29/22 15:44 BP 115/56 L 03/29/22 15:44 Pulse Ox 97 03/29/22 15:44 O2 Del Method 03/29/22 15:44 BMI result Body Mass Index 29.5 Const: General: cooperative, healthy appearing and no acute distress Resp: Effort & Inspection: normal respiratory effort and able to speak in complete sentences Cardio: Rate: regular rate Peripheral pulses: Peripheral pulses 2+ throughout GI: Palpation (GI): Soft to palpation Skin: General skin exam: no rashes or lesions noted Extrem: Other: Left leg splint intact,prevena intact and functioning. Sensation to toes intact Discharge Plan Discharge Patient Disposition: Home, Self-Care Discharge Diagnosis: ORIF calcaneus Referrals: Blanca Ambrocio PA-C [Physician Residential Program Manager] - 2 Weeks [place]04/06/22 1:15 [facility] [place] [facility] Blanca Ambrocio, MARTIN[place] Discharge Medications: New oxycodone-acetaminophen [Percocet] 5-325 mg tablet 1 tab PO Q4-6H PRN (Reason: pain) 7 Days Qty: 42 0RF Rx Instructions: Partial Fill upon patient request. morphine [MS Contin] 15 mg tablet extended release 15 mg PO Q12H 3 Days Qty: 6 0RF Rx Instructions: Partial Fill upon patient request. celecoxib 200 mg Capsule 200 mg PO BID 30 Days Qty: 60 0RF docusate sodium 100 mg Capsule 100 mg PO BID 14 Days Qty: 28 0RF Continued ibuprofen 600 mg tablet 600 mg PO Q6H PRN (Reason: pain) Qty: 20 0RF acetaminophen 500 mg tablet 1,000 mg PO QID PRN (Reason: pain) Qty: 30 0RF buprenorphine-naloxone [Suboxone] 2-0.5 mg film 1 film buccal DAILY Rx Instructions: place 1 strip/tab under (each) side of tongue Discontinued oxycodone 5 mg tablet 5 mg PO Q6H PRN (Reason: pain) Qty: 20 0RF Rx Instructions: Partial Fill upon patient request. Discharge Orders: Discharge Order (Routine); Ordered 03/29/22 Ordered By: José Miguel North Diet: Regular diet Activity on Discharge: Use cane or walker Stand Alone Forms: Patient Portal Discharge page Care Plan Goals: Restore function of joint Health Concerns: none Plan of Treatment: Physical Therapy Pain management Assessment: NWB x 6 weeks operative leg Keep splint clean, dry and intact Elevate leg above the level of the heart on 3 pillows Any questions or concerns please call the office [facility] Follow up with Orthopedics in 2 weeks. Discharge Date/Time: 03/29/22 17:27
--- NOTE | 2022-04-08 08:59 | P.OP_ITS ---
Operative Note Operative Note Date of Service: 03/27/22 Narrative: Date of Service: 03/27/22 Pre-op diagnosis: left calcaneus fracture Post-op diagnosis: same Procedure: ORIF left calcaneus Implants: [place] Surgeon: Zhou Mallory MD Anesthesia: GETA and local Was an Critical Care Specialist used for this Procedure?: Yes Critical Care Specialist: José Miguel North Estimated blood loss (mL): 250 Tourniquet time (min): 120 IV fluids (mL): 2,000 Pathology: none sent Condition: stable Disposition: PACU Procedure in detail: Patient was brought to the operating room and placed in a sloppy lateral position on the operative table. All bony prominences were well padded and a time-out was called to identify proper site proper procedure proper surgeon. IV antibiotics per weight were administered. I began by exsanguinating limb is slightly tourniquet to 300 mm Hg. I then made a standard posterolateral L- shaped incision at the junction of the glabrous and non glabrous skin of the lateral hindfoot extending proximal along the posterolateral border of the fibula. Full-thickness flaps were taken down to the subtalar joint. The sural nerve and the peroneal tendons were protected. K wires were placed into the talus and the fibula to retract the superior flap. The subtalar joint was identified and the lateral wall was comminuted and prominent. I placed a large Steinmen pin through the calcaneal posterior body for traction and brought the calcaneus out of varus. I placed two k-wires through the calcaneus and into the sustentaculum to stabilize the alignment. I then removed the lateral cortical bone exposing the displaced fragments of the posterior facet of the calcaneus. Through irrigation and debridement I was able to visualize the displaced central piece which was malrotated and impacted. I was able to use a k-wire to joystick it into anatomic position and then placed one 3.5 cortical screw through the fragment into the sustentaculum using standard AO technique.. A Stewart view of the calcaneus confirmed this and alignment was also confirmed with direct visualization. Once I had reduced the posterior facet fragments 5 cc of Hydroset was placed into the void under the posterior facet. The lateral cortical piece was replaced and once the Hydroset was dry a calcaneal mesh plate was selected. Using standard AO technique, direct visualization and biplanar radiography I placed screws through the body of the calcaneus and the anterior process as well as under the posterior facet stabilizing the fracture. I was satisfied that the screws were intra-osseous and not intra-articular and that the posterior facet alignment remained anatomic. Once I was satisfied with the position of the hardware and the fracture I irrigated copiously. Full thickness skin flaps were closed with 3.0 Nylon using an Allgower Donati technique. The patient was placed into a sterile dressing and a well-padded (Bulky Forbes) posterior splint was applied. Tourniquet was let down and the patient was extubated brought to recovery room in stable condition there were no known complications.
== END 2022-03-29 17:27 | disposition home or self-care (01) | DRG 504 ==
LOC: HO.SSSA 12:54 → HO.S3 16:28
PROVIDERS: Physician Assistant; Admitting Provider Orthopaedic Surgery; Responsible Provider Internal Medicine; Visit Provider Orthopaedic Surgery
PROC: 0QSM04Z Reposition Left Tarsal with Internal Fixation Device, Open Approach (ICD-10-PCS; CPT 28415; principal; 2022-03-27 12:00)
DX: S92.002A Unspecified fracture of left calcaneus, initial encounter for closed fracture (principal); F11.20 Opioid dependence, uncomplicated; W17.89XA Other fall from one level to another, initial encounter; F17.210 Nicotine dependence, cigarettes, uncomplicated; Z20.822 Contact with and (suspected) exposure to COVID-19; Z71.6 Tobacco abuse counseling; Z79.899 Other long term (current) drug therapy
CPT/HCPCS: 36415; 85014; 85018; 87635; 97161; C1713; J0131; J0690; J1170; J1200; J1885; J2250; J2795; J3010

== ENCOUNTER 2022-05-04 14:02 | Outpatient (RCR) | payer OTHER, SELFPAY | END 2022-06-11 14:03 | disposition home or self-care (01) | LOC: HO.WCC 14:02 | PROVIDERS: Visit Provider Physician Assistant | DX: T81.31XA Disruption of external operation (surgical) wound, not elsewhere classified, initial encounter (principal); S92.002D Unspecified fracture of left calcaneus, subsequent encounter for fracture with routine healing; F17.210 Nicotine dependence, cigarettes, uncomplicated; F12.90 Cannabis use, unspecified, uncomplicated; Z71.6 Tobacco abuse counseling | CPT/HCPCS: 11042; 87070; 87077; 87186; 87205; 97602 ==

== ENCOUNTER 2022-05-21 07:54 | Outpatient (REF) | payer OTHER, SELFPAY ==
--- NOTE | ~2022-05-21 | XR_ITS ---
EXAMINATION: XR FOOT, LEFT CLINICAL INFORMATION: Fracture COMPARISON: Previous x-ray February 2022 and fluoroscopy images March 2022 TECHNIQUE: AP, lateral, and oblique views of the left foot. FINDINGS: There is orthopedic hardware with plate and screws in the calcaneus. This appears similar to intraoperative exam March 2022. No evidence of hardware fracture or loosening. Calcaneal fracture obscured due to hardware. No other fracture is seen. Osteopenia. Soft tissues are normal. XR/XR foot LT min 3V IMPRESSION: ORIF of calcaneal fracture.
== END 2022-05-21 07:55 | disposition home or self-care (01) ==
LOC: HO.HOSX 07:54
PROVIDERS: Visit Provider Physician Assistant
DX: M79.672 Pain in left foot (principal)
CPT/HCPCS: 73630

== ENCOUNTER 2022-06-03 10:05 | Day surgery (SDC) | payer OTHER, SELFPAY ==
--- NOTE | 2022-06-02 09:17 | HO.ANESPROP2 ---
Documented by User: Halie Andrew NP 06/02/22 09:20 HPI - Anesthesia Eval Consult details Narrative: 36yo M for Left Removal Calcaneal Orthopedic Hardware s/p site ORIF 03/2022 with GA-LMA 4 Suboxone daily PMFSH Active Problems Active Problems: All Active Problems (Updated 03/31/22 @ 00:03 by Ruby Atkinson) Right ankle sprain (Acute) Calcaneus fracture, left (Acute) Injury of right ulnar nerve (Acute) Stiffness of right hand joint (Acute) Contusion of right hand (Acute) Past Medical History Medical History At risk for inadequate pain control Smoker Family History Family History Other No family history of coronary artery disease Family history of problems with anesthesia: No Surgical History Surgical History History of appendectomy History of open reduction and internal fixation (ORIF) procedure History of Problems with Anesthesia: No Social History Social History Patient Tobacco Use Status: Current everyday Tobacco user Tobacco use type: Cigarette Cigarettes Per Day: 7 Years Smoked: 20 Smoked in Last 30 Days: Yes Use of substances other than those prescribed or required for medical reasons: Yes Are you DNR?: No Advance Directives: No Advance Directives Information Provided: Yes service: No Current occupational status: employed 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, 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 Allergies Allergy/AdvReac Type Severity Reaction Status Date / Time No Known Allergies Allergy Verified 06/03/22 10:28 Home Medications Medication Instructions Recorded Confirmed Last Taken Type buprenorphine 2 mg-naloxone 0.5 mg 1 film buccal DAILY 03/26/21 06/03/22 06/02/22 06:30 History sublingual film (Suboxone) 4 mg Exam Exam Date and Time: June 02, 2022 0917 Pertinent Lab Results Pertinent Lab Results: Laboratory Tests 03/06/22 03/06/22 03/28/22 11:52 11:52 05:13 WBC 10.4 Hgb 11.1 L D Hct 32.9 L D Plt Count 260 Sodium 136 Potassium 4.9 Chloride 106 Carbon Dioxide 24 BUN 13 Creatinine 0.89 Assessment and Plan Assessment Anesthesia Assessment: Chart Reviewed Final Anesthetic Review Family History of Problems with Anesthesia: No History of Problems with Anesthesia: No Documented by User: Axel Prather MD 06/03/22 15:46 PMFSH Past Medical History Medical History At risk for inadequate pain control Smoker Family History Family History Other No family history of coronary artery disease Surgical History Surgical History History of appendectomy History of open reduction and internal fixation (ORIF) procedure Social History Social History Patient Tobacco Use Status: Current everyday Tobacco user Tobacco use type: Cigarette Cigarettes Per Day: 7 Years Smoked: 20 Smoked in Last 30 Days: Yes Use of substances other than those prescribed or required for medical reasons: Yes Are you DNR?: No Advance Directives: No Advance Directives Information Provided: Yes service: No Current occupational status: employed 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, 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 Allergies Allergy/AdvReac Type Severity Reaction Status Date / Time No Known Allergies Allergy Verified 06/03/22 10:28 Home Medications Medication Instructions Recorded Confirmed Last Taken Type buprenorphine 2 mg-naloxone 0.5 mg 1 film buccal DAILY 03/26/21 06/03/22 06/02/22 06:30 History sublingual film (Suboxone) 4 mg Exam Airway Mallampati Class: III TM Dist: >3cm Neck ROM: Full Loose/Missing/Broken Teeth: Yes (Poor dentition ) Heart: S1,S2 Lungs: b/l breath sounds Assessment and Plan Assessment Anesthesia Assessment: Anesthesia Plan Discussed Final Anesthetic Review NPO: Yes ASA Class: III Final Preanesthetic Review: Meds/Allgs Chart Reviewed, Consent Obtained/Reviewed and Anes Risks/Benef Reviewed Patient Risk: Intermediate Procedure Risk: Intermediate Anesthetic Plan Anesthetic Plan: GA Disposition: Standard PACU
[2022-06-03] VITALS (12 sets, daily range): BP systolic 119–141; BP diastolic 66–81; PULSE 55–84; RESP 14–18; TEMP 36.1–36.7; O2SAT 97–99; BMI 28.8
--- NOTE | ~2022-06-03 | FL_ITS ---
EXAMINATION: XR FLUOROSCOPY WITH IMAGES CLINICAL INFORMATION: Left calcaneus hardware removal. COMPARISON: Left foot radiographs dated 05/21/2022. TECHNIQUE: Fluoroscopy performed by Dr. Mallory. Fluoroscopy time: 1. Cumulative Dose: 0.120 mGy. DAP: 0.23915 Gycm2. Images: 1. FL/FL guidance in OR FINDINGS/IMPRESSION: Interval removal of calcaneal lateral fixation plate and screws. Please refer to the surgical report for more detailed findings.
--- NOTE | 2022-06-03 10:22 | MHC.SHP ---
Pre-Procedural Eval Section A Date of Service: 06/03/22 The patient is an INPATIENT: No Changes since office visit: Yes Patient answered all questions; No Cold of Flu in the past 2 weeks, No New Medical Problems and No Changes in Medication The History & Physical has been completed within 30 days and I have reviewed it.: Yes Section B Chief Complaint: Unspecified fracture of left calcaneus, initial en Allergies: Allergies Allergy/AdvReac Type Severity Reaction Status Date / Time No Known Allergies Allergy Verified 06/03/22 10:14 Plan I have reviewed the history and physical and performed a pertinent physical examination on my patient. No changes have occurred unless specified.
[2022-06-03 10:38] LABS: Amphetamine Screen Urine Not Detected (Not Detect); Barbiturates, Urine Not Detected (Not Detect); Benzodiazepines Screen Urine Not Detected (Not Detect); Cannabinoid Screen Urine Not Detected (Not Detect); Cocaine Screen Urine Not Detected (Not Detect); Fentanyl, urine Not Detected (Not Detect); Opiate Screen Urine Not Detected (Not Detect); Phencyclidine Screen Urine Not Detected (Not Detect)
[2022-06-03] MEDS: Lactated Ringers 1,000 ML 100 ML IVCONT (10:41)
--- NOTE | 2022-06-03 12:00 | P.BOP_ITS ---
Brief Operative Note Date of Service: 06/03/22 Pre-op diagnosis: Infected hardware left calcaneus Post-op diagnosis: same Procedure: Removal of hardware left calcaneus Irrigation and debridement left calcaneus placement of vacuum assisted dressing left calcaneus Implants: none Surgeon: Zhou Mallory MD Anesthesia: GETA and local Was an Durability Technician used for this Procedure?: Yes Durability Technician: Blanca Ambrocio Estimated blood loss (mL): 25 IV fluids (mL): 800 Pathology: other (cultures) Condition: stable Disposition: PACU
[2022-06-03] MEDS: HYDROmorphone HCl 0.5 MG/0.5 ML SYRINGE 0.25 MG IVPUSH ×2 (12:47→12:59)
[2022-06-03] MEDS: oxyCODONE HCl Immed Release 5 MG TABLET 10 MG PO (13:10)
--- NOTE | 2022-06-09 11:33 | W.PM.OPN ---
Operative Note Operative Note Date of Service: 06/09/22 Narrative: Brief Operative Note Date of Service: 06/03/22 Pre-op diagnosis: Infected hardware left calcaneus Post-op diagnosis: same Procedure: Removal of hardware left calcaneus Irrigation and debridement left calcaneus placement of vacuum assisted dressing left calcaneus Implants: none Surgeon: Zhou Mallory MD Anesthesia: GETA and local Was an Retail Pharmacy Technician used for this Procedure?: Yes Retail Pharmacy Technician: Blanca Ambrocio Estimated blood loss (mL): 25 IV fluids (mL): 800 Pathology: other (cultures) Condition: stable Disposition: PACU Patient was brought to the operating room and placed supine on the surgical table. He was prepped and draped in standard sterile fashion and a time out was called to identify proper site, proper procedure and IV antibiotics per weight were administered. I began by digitally exploring the wound. The plate was exposed and there was loss of skin over a quarter sized are directly lateral to the plate. I removed all necrotic tissue and extended the incision anteriorly over some of the healed incision to expose the plate. The screws and plate were removed without difficulty and the fracture appeared stable and largely healed. I used a currete and a rongeur to debride all necrotic tissue down to healthy tissue. I then was able to close about 70% of the wound with nylon but there was a central area approximately 1.5 cm x 1 cm in which there was full-thickness skin loss. The tissue was healthy however and a wound vac sponge was p\laced in the wound. A Proveena battery pack was attached. The ankle was padded and the patient was extubated and brought to the recovery room in stable condition. There were no known complications.
== END 2022-06-03 14:50 | disposition home or self-care (01) ==
PROVIDERS: Nurse Practitioner; Visit Provider Orthopaedic Surgery
PROC: (CPT 20680; principal; 2022-06-03 11:50)
DX: T84.69XA Infection and inflammatory reaction due to internal fixation device of other site, initial encounter (principal); M25.572 Pain in left ankle and joints of left foot; Y79.3 Surgical instruments, materials and orthopedic devices (including sutures) associated with adverse incidents; S92.002A Unspecified fracture of left calcaneus, initial encounter for closed fracture; F17.210 Nicotine dependence, cigarettes, uncomplicated; Z79.899 Other long term (current) drug therapy
CPT/HCPCS: 20680; 11012; 80307; 87070; 87186; 87205; A4649; J0131; J0690; J1100; J1170; J2405; J2795; J3010

== ENCOUNTER → 2022-07-17 09:03 | Outpatient (BNVA) | payer OTHER, SELFPAY | PROVIDERS: Visit Provider Physician Assistant | DX: S92.002D Unspecified fracture of left calcaneus, subsequent encounter for fracture with routine healing (principal); Z98.890 Other specified postprocedural states | CPT/HCPCS: 99212 ==